=== PATIENT | female | born 2000 | race Caucasian/White ===

== ENCOUNTER 2023-06-04 10:11 | Outpatient (CLI) | payer OTHER | END 2023-06-04 23:59 | disposition critical access hospital (66) | LOC: EMS 10:11 | DX: R55 Syncope and collapse (principal) | CPT/HCPCS: A0425; A0429 ==

== ENCOUNTER 2023-06-04 10:31 | Emergency (ER) | payer OTHER ==
[2023-06-04 10:49] VITALS: O2SAT 100
[2023-06-04 11:01] LABS: BASOPHILS % (AUTO) 0.5 %; EOSINOPHILS # (AUTO) 0.2 10^3/uL (0.0-0.7); EOSINOPHILS % (AUTO) 3.9 %; HCT - HEMATOCRIT 37.6 % (37.0-47.0); HGB - HEMOGLOBIN 12.4 g/dL (12.0-16.0); LYMPHOCYTES # (AUTO) 1.7 10^3/uL (1.5-3.5); LYMPHOCYTES % (AUTO) 26.7 %; MEAN PLATELET VOLUME 10.3 fL (7.9-10.8); MONOCYTES # (AUTO) 0.6 10^3/uL (0.0-1.0); MONOCYTES % (AUTO) 9.3 %; NEUTROPHILS # (AUTO) 3.7 10^3/uL (1.5-6.6); NEUTROPHILS % (AUTO) 59.4 %; PLT - PLATELET COUNT 268 10^3/uL (130-450); RED CELL DISTRIBUTION WIDTH 12.6 % (12.0-15.0); WHITE BLOOD COUNT 6.2 x10^3/uL (4.8-10.8)
[2023-06-04 11:14] LABS: ALBUMIN 4.4 g/dL (3.2-5.5); ALBUMIN/GLOBULIN RATIO 1.6 (1.0-2.2); BILIRUBIN,TOTAL 0.5 mg/dL (0.2-1.0); CALCIUM 9.3 mg/dL (8.5-10.3); CREATININE 0.8 mg/dL (0.6-1.3); POTASSIUM 3.2 mmol/L (3.5-4.5); TOTAL PROTEIN 7.1 g/dL (6.4-8.9)
[2023-06-04 11:31] LABS: BILIRUBIN,URINE NEGATIVE (NEGATIVE); GLUCOSE, URINE (UA) NEGATIVE (NEGATIVE); KETONES,URINE (UA) NEGATIVE (NEGATIVE); LEUKOCYTE ESTERASE, URINE TRACE (NEGATIVE); NITRITE,URINE NEGATIVE (NEGATIVE); OCCULT BLOOD,URINE TRACE-INTA (NEGATIVE); PROTEIN,URINE NEGATIVE (NEGATIVE); UROBILINOGEN,URINE 0.2 (NORMAL) E.U./dL (NORMAL)
[2023-06-04 11:35] LABS: CLARITY,URINE CLEAR (CLEAR); HCG UR QUAL NEGATIVE
[2023-06-04] MEDS ORDERED: SODIUM CHLORIDE 0.9% 1,000 ML IV STA (11:38)
[2023-06-04 11:50] LABS: BACTERIA,URINE Moderate /HPF (None Seen); RBC,URINE 0-5 /HPF (0-5); SQUAMOUS EPITHELIAL CELL,UR FEW Squamous (<= Few); WBC,URINE 0-3 /HPF (0-5)
--- NOTE | 2023-06-04 12:34 | ED Physician Documentation ---
PD HPI SYNCOPE - Stated complaint Stated Complaint: SYNCOPE/SZ - Chief complaint Chief Complaint: Neuro - History obtained from History obtained from: Patient - Additional information Additional information: Patient is a 23-year-old female presenting for evaluation of a syncopal episode that occurred just prior to arrival. Patient states that she was working the overnight shift and got off work around 3 AM. She went home and slept till about 6 AM. She got up to help a friend who recently had breast implants with changing their dressings and drains. She reports feeling tired and warm well standing up and the room to help her friend. She then had a witnessed syncopal episode. Patient states that she has had vagal reactions in the past when getting her own blood drawn and also reports feeling squeamish when watching TV shows with a lot of blood or surgical procedures. She states that her last oral intake was yesterday evening prior to going in to work around 8. She denies headache, chest pain, shortness of air, abdominal symptoms. She did not bite her tongue or have urinary incontinence. Review of Systems Constitutional: denies: Fever Cardiac: denies: Chest pain / pressure Respiratory: denies: Dyspnea GI: denies: Abdominal Pain : denies: Dysuria Neurologic: reports: Syncope PD PAST MEDICAL HISTORY - Past Medical History Past Medical History: Yes Psych: Depression Other Past Medical History: insomnia - Past Surgical History Past Surgical History: No - Present Medications Home Medications: Ambulatory Orders Medication Instructions Recorded Confirmed Sertraline [Zoloft] 50 mg PO DAILY 06/04/23 06/04/23 hydrOXYzine HCL [Hydroxyzine HCl] 25 mg PO DAILY PRN 06/04/23 06/04/23 - Allergies Allergies/Adverse Reactions: Allergies Allergy/AdvReac Type Severity Reaction Status Date / Time No Known Drug Allergies Allergy Verified 06/04/23 10:49 - Social History Does the pt smoke?: No Smoking Status: Never smoker Does the pt drink ETOH?: Yes Does the pt have substance abuse?: No PD ED PE NORMAL - General General: Alert and oriented X 3, No acute distress, Well developed/nourished - HEENT HEENT: Atraumatic, PERRL, EOMI, Moist mucous membranes, Pharynx benign - Neck Neck: Supple, no meningeal sign, No bony TTP - Cardiac Cardiac: RRR, No murmur, Strong equal pulses - Respiratory Respiratory: No respiratory distress, Clear bilaterally - Abdomen Abdomen: Normal bowel sounds, Soft, Non tender, Non distended - Derm Derm: Warm and dry - Extremities Extremities: No deformity - Neuro Neuro: Alert and oriented X 3, 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, No motor deficit, No sensory deficit, Normal speech, Other (Normal gait) Eye Opening: Spontaneous Motor: Obeys Commands Verbal: Oriented GCS Score: 15 Results - Vitals Vitals: Vital Signs - 24 hr 06/04/23 06/04/23 06/04/23 10:41 11:27 11:39 Temperature 37.1 C Heart Rate 58 L 58 L Heart Rate [ 61 Sitting] Heart Rate [ 66 Standing] Heart Rate [ 67 Supine] Respiratory 18 12 Rate Blood Pressure 120/69 122/67 Blood Pressure 119/71 [Sitting] Blood Pressure 121/79 [Standing] Blood Pressure 115/73 [Supine] O2 Saturation 100 100 06/04/23 12:52 Temperature Heart Rate 64 Heart Rate [ Sitting] Heart Rate [ Standing] Heart Rate [ Supine] Respiratory 18 Rate Blood Pressure 113/64 Blood Pressure [Sitting] Blood Pressure [Standing] Blood Pressure [Supine] O2 Saturation 100 Oxygen O2 Source Room air - EKG (time done) 1036 EKG releavant findings:: EKG personally interpreted by author of this note. Relevant findings are: Rate 52, sinus bradycardia, no STEMI, QTc 454 - Labs Labs: Laboratory Tests 06/04/23 06/04/23 06/04/23 10:56 10:56 11:15 WBC 6.2 RBC 4.00 L Hgb 12.4 Hct 37.6 MCV 94.0 MCH 31.0 MCHC 33.0 RDW 12.6 Plt Count 268 MPV 10.3 Neut # (Auto) 3.7 Lymph # (Auto) 1.7 Gaines # (Auto) 0.6 Eos # (Auto) 0.2 Baso # (Auto) 0.0 Absolute Nucleated RBC 0.00 Nucleated RBC % 0.0 Sodium 137 Potassium 3.2 L Chloride 105 Carbon Dioxide 26 Anion Gap 6.0 BUN 15 Creatinine 0.8 Estimated GFR (MDRD) 89 Glucose 93 Calcium 9.3 Total Bilirubin 0.5 AST 21 ALT 23 Alkaline Phosphatase 36 L Total Protein 7.1 Albumin 4.4 Globulin 2.7 Albumin/Globulin Ratio 1.6 Lipase 14 Urine Color YELLOW Urine Clarity CLEAR Urine pH 6.0 Ur Specific Industry 1.010 Urine Protein NEGATIVE Urine Glucose (UA) NEGATIVE Urine Ketones NEGATIVE Urine Occult Blood TRACE-INTA Urine Nitrite NEGATIVE Urine Bilirubin NEGATIVE Urine Urobilinogen 0.2 (NORMAL) Ur Leukocyte Esterase TRACE H Urine RBC 0-5 Urine WBC 0-3 Ur Squamous Epith Cells FEW Squamous Urine Bacteria Moderate H Ur Microscopic Review INDICATED Urine Culture Comments INDICATED Urine HCG, Qual NEGATIVE PD Medical Decision Making - ED course Complexity details: reviewed results, re-evaluated patient, d/w patient ED course: Patient is a 23-year-old female presenting for evaluation of a syncopal episode. EKG is nonischemic and she has no risk factors for ACS. PERC negative. CBC, chemistry, urinalysis were obtained and reviewed and without significant findings other than mild hypokalemia which was replaced orally.Urine has bacteria present but she has no symptoms so will not treat.Patient reports being up much of the night for work and did not have much to eat or drink prior to the episode. Additionally she also has reported feeling lightheaded and squeamish when having her own blood drawn or when confronted with bloody scenes in the past and she was helping her friend change a surgical dressing during this event. Normal neuro exam. No symptoms to suggest intracranial hemorrhage or subarachnoid hemorrhage. Orthostatics are negative. Patient is feeling better here with IV fluids. She was counseled on need for close follow-up at the [facility] as well as continued hydration and rest. Discussed concerning symptoms to return for. Departure - Departure Disposition: 01 Home, Self Care Clinical Impression: Syncope Condition: Stable Instructions: ED Fainting Unkn Cause Follow-Up: ARJUN Nascimento [Provider Group] Comments: You were evaluated after a fainting spell. Potassium was slightly low and we have given you oral potassium replacement. Your fainting spell could be related to a combination of factors including not having had much to eat or drink in the hours leading up to it as well as being up all night working. I would recommend close follow-up with your primary care provider at the [facility]. I would also recommend continued rest and hydration today. Return to the emergency department with any recurrent or worsening symptoms. Forms: PCP List Discharge Date/Time: 06/04/23 12:52
[2023-06-04] MEDS ORDERED: POTASSIUM BICARB 25 MEQ TABLET PO STA (12:43)
[2023-06-04 13:17] VITALS: BP 113/64
== END 2023-06-04 12:52 | disposition home or self-care (01) ==
LOC: EDBD → ED 10:31
DX: R55 Syncope and collapse (principal)
CPT/HCPCS: 36415; 80053; 81001; 81025; 83690; 85025; 87086; 93005; 99283; 99284; A9270; 81003